=== PATIENT | male | born 1990 | race African-American/Black ===

== ENCOUNTER 2021-08-20 16:37 | Emergency (ER) | payer SELFPAY ==
[~2021-08-20] VITALS: Ht 175.3 cm; Wt 91.4 kg
--- NOTE | 2021-08-20 17:14 | PHYS DOC ---
Past Medical History Past Surgical History: Other Additional Past Surgical Histo: LT ACL REPAIR General Adult EDM: Chief Complaint: KNEE INJURY HPI: HPI: Patient is a 31 year old male who presents with right knee pain that began last night. He rates his pain 45/10. Patient states he was playing basketball when his "knee gave out. He reports he planted his foot and twisted, then heard a "rip, like his upper unzipping." Patient reports he did tear his left ACL in the past, and it did not feel the same. Patient was able to walk after the injury. He states he is able to walk, but any lateral movements are painful. He reports associated intermittent numbness in his foot. Patient took aspirin at 0600 and 650 mg Tylenol at 1000. Patient has worn a compression knee brace since the time of injury. Patient has no other complaints at this time. Review of Systems: Review of Systems: ROS negative except as mentioned in HPI. Heart Score: C/O Chest Pain: No Physical Exam: PE: Constitutional: Well developed, well nourished, no acute distress, non-toxic appearance. Cardiovascular: Heart rate regular rhythm, no murmur. Lungs & Thorax: Bilateral breath sounds clear to auscultation. Skin: Warm, dry, no erythema, no rash. Extremities: Right knee with minimal tenderness to the daysi-medial aspect just distal to the patella, PT pulse palpable, no joint laxity on anterior drawer or posterior drawer test. Extremities otherwise no tenderness, no cyanosis, no clubbing, ROM intact, no edema, neurovascular intact in extremities x4. Neurologic: Alert and oriented x3, normal motor function, normal sensory function, no focal deficits noted. Current Patient Data: Vital Signs: Vital Signs Date Time Temp Pulse Resp B/P (MAP) Pulse Ox O2 Delivery O2 Flow Rate FiO2 08/20/21 17:44 61 18 128/78 (95) 100 Room Air 08/20/21 16:45 97.7 86 16 140/90 (107) 98 Room Air 97.7 Radiology/Procedures: Radiology/Procedures: PROCEDURE: KNEE RIGHT 3V Site ID: [id number] EXAMINATION: AP, oblique and lateral views of the right knee obtained. HISTORY: 31 years Male right knee pain. COMPARISON: None. FINDINGS: There is a irregularity of the anterior cortex of the patella better appreciated on the AP projection with the fragmentation involving its inferior aspect and approximately 1 cm long the bone fragment seen at its inferior portion with well-corticated margins in favor of sequela of old injury. No definite acute fracture. The joint spaces appear unremarkable. No suprapatellar effusion evident. IMPRESSION: Irregularity of the cortex along the anterior margin of the patella and 1 cm inferior bone fragment seen is favored to be secondary to old injury. Correlate clinically. Electronically signed by: Reji Gutierrez MD (08/20/2021 5:32 PM) [id number] Course & Med Decision Making: Course & Med Decision Making Pertinent Labs and Imaging studies reviewed. (See chart for details) Patient mechanism of injury could lead to a ligamentous or meniscal tears. X- rays ordered to rule out any bony abnormalities. Patient understands limitation of evaluation here in the emergency department. No definite acute fractures appreciated, though one patellar fracture likely due to old injury, as current presentation & history does not correlate with this type of injury. Patient instructed to alternate with NSAID and Tylenol for pain management. Additionally, he should continue to wear the compression brace on his knee until he is able to follow-up with orthopedic group. Patient understands and is agreeable to discharge plan. Dragon Disclaimer: Dragon Disclaimer: This electronic medical record was generated, in whole or in part, using a voice recognition dictation system. Departure Departure Impression: Primary Impression: Knee pain, left Qualified Codes: M25.562 - Pain in left knee Disposition: 01 HOME / SELF CARE / HOMELESS Condition: STABLE Referrals: LYNN MCGEE DO Patient Instructions: Knee Pain, [id number], RICE - Routine Care for Injuries, [id number] Additional Instructions: As discussed, x-ray is limited in evaluating soft tissue knee injuries. You are provided with contact information for Dr. Mcgee with the [facility] orthopedic group. Please call to make an appointment for further evaluat ion and treatment. In the meantime, follow the rice instructions for joint injuries. You may alternate every 4 hours between acetaminophen (Tylenol) and either naproxen (Aleve) OR ibuprofen (Advil, Motrin). Return to the emergency department if your pain worsens or you develop any new symptoms. SAMIA MARTINEZ Aug 20, 2021 17:14
--- NOTE | 2021-08-20 17:34 | RAD ---
Site ID: [id number] EXAMINATION: AP, oblique and lateral views of the right knee obtained. HISTORY: 31 years Male right knee pain. COMPARISON: None. FINDINGS: There is a irregularity of the anterior cortex of the patella better appreciated on the AP projection with the fragmentation involving its inferior aspect and approximately 1 cm long the bone fragment seen at its inferior portion with well-corticated margins in favor of sequela of old injury . No definite acute fracture. The joint spaces appear unremarkable. No suprapatellar effusion evident . IMPRESSION: Irregularity of the cortex along the anterior margin of the patella and 1 cm inferior bone fragment s een is favored to be secondary to old injury. Correlate clinically. Electronically signed by: Reji Gutierrez MD (08/20/2021 5:32 PM) [id number]
[2021-08-20 17:44] VITALS: BP 128/78
== END 2021-08-20 17:58 | disposition home or self-care (01) ==
LOC: ER 16:37
DX: M25.561 Pain in right knee (principal); G89.11 Acute pain due to trauma; X50.9XXA Other and unspecified overexertion or strenuous movements or postures, initial encounter; Y93.67 Activity, basketball; Y92.89 Other specified places as the place of occurrence of the external cause; Y99.8 Other external cause status
CPT/HCPCS: 73562; 99283